=== PATIENT | male | born 2000 | race Caucasian/White ===

== ENCOUNTER 2022-01-29 19:42 | Emergency (ER) | payer BC, SELFPAY ==
[2022-01-29 19:45] VITALS: BP 111/60; PULSE 55; RESP 18; TEMP 36.8; O2SAT 98
--- NOTE | 2022-01-29 20:00 | DI.CT_ITS ---
Exam(s) CT HEAD WO EXAM: CT HEAD WO CLINICAL HISTORY: head injury, left pupil greater than right. TECHNIQUE: Imaging Protocol: Axial computed tomography images with coronal and sagittal reformatted images were created and reviewed COMPARISON: No exams were available for comparison FINDINGS: Ventricles and Extra axial spaces: Normal in size and morphology for the patient's age. Hemorrhage: None. Cerebral parenchyma: Normal. Midline shift: None. Brainstem/Cerebellum: Normal. Calvarium: Normal. Visualized Paranasal sinuses/Mastoids: Clear. Soft Tissues: Unremarkable. IMPRESSION: No acute intracranial process. RADIATION DOSE DELIVERED: 764.12mGy.cm Total DLP DATA REPOSITORY: All CT scans at this facility are submitted to the National Radiology Data Registry (NRDR) Dose Index Registry (DIR) with the [employer] ([employer]). RADIATION OPTIMIZATION: All CT scans at this facility use at least one of these dose optimization te chniques: automated exposure control; mA and/or kV adjustment per patient size (includes targeted exa ms where dose is matched to clinical indication); or iterative reconstruction.
[2022-01-29 20:05] VITALS: BP 110/80; PULSE 55; RESP 18; TEMP 37; O2SAT 95
--- NOTE | 2022-01-29 20:13 | ED.GENADUL_ITS ---
Discharge Plan Disposition Patient Disposition: HOME Condition: Improving Discharge Details Chief Complaint: HeadInjury Clinical Impression: Head injury Primary Care Provider: Unknown,Unknown ED Provider: Jamarcus David Home Meds and New Rx's Prescriptions: No Action escitalopram oxalate 10 mg Tablet 10 mg PO DAILY Discharge Instructions Instructions: Concussion (ED), Head Injury (ED) Additional Instructions: Please follow-up with your primary care physician. Please return to the emergency department you develop worsening headache nausea vomiting weakness numbness or other abnormal symptoms Medical Decision Making 22-year-old male presents 3 hours after sustaining a head injury while working on a car in his garage, large piece of metal struck him in the side of the head, stunned without a loss of consciousness, no nausea or vomiting does have slight headache and photophobia, moving all extremities neurologically intact strength and sensation intact no ataxia, patient notices that his speech is not slurred but he is able to successfully communicate himself without much issue, slight anisocoria with left pupil slightly larger than right, bilateral TMs unremarkable. Consider concussion versus must consider intracranial bleed versus skull fracture. Stat CT head. Analgesia close reassessment disposition pending imaging and reassessment. 21: 30 patient resting comfortably no acute distress. No nausea or vomiting. Neurologically intact. CT unremarkable. Home care instructions and return pr ecautions given. Family coming to pick him up. HPI General Date/Time Provider Initiated Documentation: 01/29/22 19:54 . HPI Narrative: 22-year-old male presents after head injury while working on a car in his garage, a 20 pound piece of metal swung and hit him on the side of the head. Stung him without loss of consciousness. Endorses headache and states that his speech is not as fluid as normal. Denies nausea or vomiting. Denies weakness or numbness. This event happened approximately 3 hours ago. Related Data Home Medications Medication Instructions Recorded Confirmed escitalopram oxalate 10 mg tablet 10 mg PO DAILY 01/29/22 01/29/22 Allergies Allergy/AdvReac Type Severity Reaction Status Date / Time No Known Allergies Allergy Unverified 01/29/22 19:53 General Stated Complaint: HeadInjury MARVEL: 4 Review of Systems Narrative: Review of Systems Constitutional: negative Eyes: negative ENT: negative Cardiovascular: negative Respiratory: negative Gastrointestinal: negative : negative Musculoskeletal: negative Skin: negative Neurologic: Headache, change in speech Psych: negative PFSH All Active Problems (Updated 01/29/22 @ 21:31 by Jamarcus David MD) Head injury (Acute) Social History Smoking risk assessment performed?: No Alcohol Intake: current Alcohol Intake frequency: 0-2 drinks per day Alcohol type: beer Substance use type: marijuana Do you feel safe at home: Yes Do you feel safe in your relationship?: Yes Exam Narrative Exam Narrative: Physical Examination General: alert, awake, cooperative, resting comfortably, no acute distress HEENT: normocephalic, atraumatic; slight anisocoria with left pupil slightly larger than right, both reactive to light; EOM intact, conjunctiva normal; no nasal discharge; moist mucous membranes, oral and pharyngeal mucosa normal, tolerating secretions Neck: supple, trachea midline; full ROM Chest: normal to inspection Respiratory: normal respiratory effort, speaking in full sentences, clear to auscultation, no wheezing, rales or rhonchi Cardiac: regular rate, regular rhythm, S1S2 intact, no murmurs rubs or gallops GI: abdomen soft, non-tender, non-distended; no palpable mass or hepatosplenomegaly Skin: no lesions, rashes or trauma appreciated Neuro: AAOx3, normal speech occasionally slightly fumbles with word but is able to fluidly express himself, moving all extremities; cranial nerves II through XII intact, 5 out of 5 strength upper and lower extremities, ambulatory without assistance no ataxia, slight anisocoria with left pupil slightly larger than right Extremities: Moving all extremities no signs of trauma Psych: Appropriate mood and affect Course Vital Signs Vital signs: Vital Signs Temperature 36.8 C 01/29/22 19:45 Pulse 55 L 01/29/22 19:45 Respiratory Rate 18 01/29/22 19:45 Blood Pressure 111/60 01/29/22 19:45 Pulse Oximetry 98 01/29/22 19:45 Temperature 36.8 C 01/29/22 19:45 Temperature Source Temporal Artery Scan 01/29/22 19:45 Pulse 55 L 01/29/22 19:45 Respiratory Rate 18 01/29/22 19:45 Respiratory Effort Non-Labored 01/29/22 19:54 Blood Pressure 111/60 01/29/22 19:45 Blood Pressure Position Sitting 01/29/22 19:45 Pulse Oximetry 98 01/29/22 19:45 Oxygen Delivery Method Room Air 01/29/22 19:45 Oxygen Flow Rate 0 01/29/22 19:45 Pain Level 3 01/29/22 19:45 PAWSS Have you Been Recently Intoxicated or Drunk Within the Last 30 days?: No Have you Ever Experienced Previous Episodes of Alcohol Withdrawal?: No Have you ever Experienced Withdrawal Seizures?: No Have you ever Experienced Delirium Tremens(DT)s?: No Have you ever undergone Alcohol Rehabilitation Treatment (i.e, inpt ot outpatient treatment programs)?: No Have you ever Experienced Blackouts?: No Have you ever Combined Alcohol with other Downers within the last 90 days?: No Have you ever Combined Alcohol with any other Substance of Abuse during the last 90 days?: No Positive Blood Alcohol level on Presentation? [PCS.BAL]: No Evidence of Increased Autonomic Activity (i.e. HR>120, tremor, sweating, agitation, nausea)?: No Result: 0
[2022-01-29] MEDS: Acetaminophen 325 MG TAB 650 MG PO (20:30)
--- NOTE | 2022-01-29 21:15 | DI.VRAD_ITS ---
PROCEDURE INFORMATION: Exam: CT Head Without Contrast Exam date and time: 01/29/2022 8:43 PM Age: 22 years old Clinical indication: Other: Head injury, left pupil greater than right TECHNIQUE: Imaging protocol: Computed tomography of the head without contrast. Radiation optimization: All CT scans at this facility use at least one of these dose optimization techniques: automated exposure control; mA and/or kV adjustment per patient size (includes targeted exams where dose is matched to clinical indication); or iterative reconstruction. COMPARISON: No relevant prior studies available. FINDINGS: Brain: No acute intracranial hemorrhage, mass-effect, midline shift, or extra-axial collection is seen. The smith white matter differentiation appears preserved. Cerebral ventricles: The ventricular system and basilar cisterns appear appropriate in size and configuration. Paranasal sinuses: The visualized paranasal sinuses appear well-aerated. Mastoid air cells: The mastoid air cells appear well-aerated. Orbital cavities: The globes and intraorbital structures appear grossly intact. Bones/joints: The bony calvarium appears intact. No depressed skull fracture is seen. Soft tissues: No gross focal scalp hematoma is seen. IMPRESSION: No acute intracranial hemorrhage or depressed skull fracture. Dictated and Authenticated by: Froilan Mueller MD. Ordering:DORCAS Ricketts MD
== END 2022-01-29 21:40 | disposition home or self-care (01) ==
PROVIDERS: Emergency Provider Emergency Medicine
DX: S09.90XA Unspecified injury of head, initial encounter (principal); H57.02 Anisocoria; W22.8XXA Striking against or struck by other objects, initial encounter; Y93.89 Activity, other specified; Y92.59 Other trade areas as the place of occurrence of the external cause; Y99.0 Civilian activity done for income or pay
CPT/HCPCS: 99284; 70450; 99282

== ENCOUNTER 2024-06-29 18:33 | Outpatient (REF) | payer BC, SELFPAY ==
[2024-06-29 21:09] LABS: Bilirubin Negative (Negative); Blood Trace-intact (Negative); Clarity Sl Cloudy (Clear); Glucose Negative (Negative); Ketones Negative (Negative); Leukocyte Esterase Moderate (Negative); Nitrite Positive (Negative); Specific Gravity 1.025 (1.005-1.025); Urobilinogen 0.2 mg/dL (Up to 0.2); pH 5.5 (5-8)
[2024-06-29 21:20] LABS: Bacteria Moderate HPF (Negative); C & S Indicated? Yes; Casts Negative LPF (Negative); Crystals Negative HPF (Negative); Epithelial Cells Negative HPF (Negative); Mucus Negative (Negative); RBC 0-2 HPF (0-2); WBC 20-50 HPF (0-5)
[2024-06-30 21:20] LABS: HIV-1/2 Ag & Ab Screen Negative (Negative); Hepatitis C Ab w Rflx HCV PCR Negative (Negative)
[2024-07-02 10:14] LABS: Syphilis Serology (RPR) Negative (Negative)
[2024-07-02 12:18] LABS: Chlamydia Result Negative (Negative); GC Result Negative (Negative)
[2024-07-03 09:38] LABS: HSV Type 1 Ab, IgG Positive (Negative); HSV Type 2 Ab, IgG Negative (Negative)
== END 2024-06-29 18:34 | disposition home or self-care (01) ==
LOC: LBN 18:33
PROVIDERS: Visit Provider Nurse Practitioner Family
DX: R39.9 Unspecified symptoms and signs involving the genitourinary system (principal); Z11.3 Encounter for screening for infections with a predominantly sexual mode of transmission
CPT/HCPCS: 86803; 87077; 87389; 87491; 87591; 81003; 81015; 86592; 86695; 86696; 87086; 87186